=== PATIENT | male | born 1970 | race Caucasian/White ===

== ENCOUNTER → 2016-05-30 | Outpatient (CLI) | payer OTHER ==
[~2016-05-30] MED LIST: ATHENOL325 MG PO; FIORICET,ESG1 TABLET PO; NAPROSYN500 MG PO; VICODIN 5-3001 EACH PO; ZOFRAN4 MG PO
== END | disposition home or self-care (01) ==
LOC: CDC 15:00
DX: Z01.810 Encounter for preprocedural cardiovascular examination (principal); M25.562 Pain in left knee; S83.241A Other tear of medial meniscus, current injury, right knee, initial encounter
CPT/HCPCS: 93000